=== PATIENT | male | born 1930 | race Caucasian/White ===

== ENCOUNTER 2017-02-01 14:08 | Emergency (ER) | payer MEDICARE, OTHER ==
[~2017-02-01 14:08] MED LIST: ACET-1757 PO; ACID1TAB7 PO; ALBU8.5H3 INH; ASPI-496 PO; BUDE10.2 INH; CEFD300C37 PO; DAPT500V6 IV; DIGO125T PO; DIGO250T PO; FLUT1DIS IH; FLUT1DIS3 INH; HYDR-3138 PO; HYDR12.53 PO; LACT1CAP24 PO; LOSA50TA6 PO; METO50TA82 PO; METR500T PO; NAPR550T3 PO; NYST1000 PO; PRED10TA PO; PRED20TA PO; SIMV20TA3 PO; SOTA160T PO; TAMS-11 PO; TRAM50TA2 PO
[2017-02-01] MEDS ORDERED: OMNIPAQUE 350 MG/ML, 100ML BOTTLE ONE (22:30)
[2017-02-04 09:19] LABS: ASPARTATE AMINO TRANSFERASE 15 U/L (15-37); BLOOD UREA NITROGEN 29 mg/dL (7-18)
[2017-02-05 12:09] LABS: IS PT STATUS REG ER OR PRE ER? YES
== END 2017-02-02 00:03 ==
LOC: ED 14:08
DX: R06.00 Dyspnea, unspecified (principal); E86.0 Dehydration; J44.9 Chronic obstructive pulmonary disease, unspecified; I25.10 Atherosclerotic heart disease of native coronary artery without angina pectoris; M19.90 Unspecified osteoarthritis, unspecified site; Z95.0 Presence of cardiac pacemaker
CPT/HCPCS: 36415; 71010; 71275; 80053; 81001; 84484; 85025; 85379; 87040; 93005; 99285; Q9967

== ENCOUNTER → 2017-03-19 | Outpatient (CLI) | payer MEDICARE, OTHER ==
[~2017-03-19] MED LIST changes: -NAPR550T3 PO; +NAPR550T30 PO
== END | disposition home or self-care (01) ==
LOC: CFH 10:57
PROVIDERS: ATTEND Physician Assistant
DX: J32.0 Chronic maxillary sinusitis (principal); H70.92 Unspecified mastoiditis, left ear; J34.2 Deviated nasal septum
CPT/HCPCS: 70486

== ENCOUNTER → 2017-03-21 | Outpatient (CLI) | payer MEDICARE, OTHER ==
[2017-03-21 12:43] LABS: DIFF TOTAL CELLS COUNTED 100 CELL DIFF
[2017-03-21 12:46] LABS: VERIFY COUNTS? YES
[2017-03-21 12:47] LABS: ANISOCYTOSIS 1+; SMALL PLATELETS 1+
== END | disposition home or self-care (01) ==
LOC: LAB 11:54
PROVIDERS: ATTEND Internal Medicine Infectious Disease
DX: D70.9 Neutropenia, unspecified (principal)
CPT/HCPCS: 36415; 85025

== ENCOUNTER → 2017-05-28 | Outpatient (CLI) | payer MEDICARE, OTHER ==
[~2017-05-28] MED LIST changes: -ALBU8.5H3 INH; +ALBU8.5H8 INH; -HYDR-3138 PO; +HYDR-3237 PO; +NAPR-850 PO; -NAPR550T30 PO
== END | disposition home or self-care (01) ==
LOC: CFH 07:58
PROVIDERS: ATTEND Internal Medicine Hematology & Oncology
DX: R16.1 Splenomegaly, not elsewhere classified (principal); D70.9 Neutropenia, unspecified
CPT/HCPCS: 76700

== ENCOUNTER 2018-07-01 14:29 | Inpatient (IN) | payer MEDICARE, OTHER ==
[~2018-07-01] VITALS: Ht 160 cm; Wt 51.9 kg
[~2018-07-01 14:29] MED LIST changes: -LOSA50TA6 PO; +LOSA50TA7 PO
[2018-07-01] MEDS ORDERED: SODIUM CHLORIDE 0.9% 1,000ML IVBOLUS ONE (16:00)
[2018-07-01] MEDS ORDERED: ALBUTEROL/IPRATROPIUM 2.5MG/0.5MG, 3 ML NPPB ONE (16:00)
[2018-07-01] MEDS ORDERED: SODIUM CHLORIDE FLUSH 10ML SYR IVF ONE (16:00)
[2018-07-01 16:03] LABS: MICROSCOPIC INDICATED
[2018-07-01 16:26] LABS: BASOPHILS # (AUTO) 0.04 x10^3/uL (0-0.1); BASOPHILS % (AUTO) 1 % (0-1); EOSINOPHILS # (AUTO) 0.19 x10^3/uL (0-0.4); EOSINOPHILS % (AUTO) 4 % (1-7); LYMPHOCYTES # (AUTO) 1.14 x10^3/uL (1-3.4); LYMPHOCYTES % (AUTO) 22 % (22-44); MD NO; MEAN CORPUSCULAR HEMOGLOBIN 27.9 pg (27.5-34.5); MEAN CORPUSCULAR HGB CONC 33.3 g/dL (33.2-36.2); MEAN CORPUSCULAR VOLUME 83.7 fL (81-97); MEAN PLATELET VOLUME 6.1 fL (7.4-10.4); MONOCYTES # (AUTO) 0.57 x10^3/uL (0.2-0.8); MONOCYTES % (AUTO) 11 % (2-9); NEUTROPHILS # (AUTO) 3.24 x10^3/uL (1.8-6.8); NEUTROPHILS % (AUTO) 63 % (42-75); PLATELET COUNT 426 x10^3/uL (130-400); RED BLOOD COUNT 5.48 x10^6/uL (4.38-5.82); RED CELL DISTRIBUTION WIDTH 16.6 % (9.4-14.8)
[2018-07-01 16:31] LABS: ALANINE AMINOTRANSFERASE 16 U/L (12-78); ALBUMIN 3.1 g/dL (3.4-5.0); ANION GAP 8 mmol/L (5-15); CALCIUM 8.8 mg/dL (8.5-10.1); CHLORIDE 99 mmol/L (98-107)
[2018-07-01 16:34] LABS: ALKALINE PHOSPHATASE 61 U/L (45-117); BILIRUBIN,TOTAL 0.6 mg/dL (0.2-1.0); CREATININE 1.15 mg/dL (0.7-1.3); TOTAL PROTEIN 8.9 g/dL (6.4-8.2); TROPONIN I < 0.015 ng/mL (0.000-0.045)
[2018-07-01 16:36] LABS: CULTURE INDICATED? NO
[2018-07-01 16:40] LABS: CREATINE KINASE, TOTAL 15 U/L (39-308); FREE T4 (FREE THYROXINE) 2.72 ng/dL (0.76-1.46)
[2018-07-01 17:16] LABS: HCT (SEDRATE) 45.9 % (39.2-51.8)
[2018-07-01] MEDS ORDERED: HYDR12.58 PO (18:17)
[2018-07-01] MEDS ORDERED: NS + 20MEQ KCL 1,000 ML IV SCH (18:38)
[2018-07-01] MEDS ORDERED: DOCUSATE 100 MG CAPSULE PO PRN (19:00)
[2018-07-01] MEDS ORDERED: ONDANSETRON 2MG/ML, 2ML IVPush PRN (19:00)
[2018-07-01] MEDS ORDERED: HYDROcodone/APAP 5/325 TABLET PO PRN (19:00)
[2018-07-01] MEDS ORDERED: ACETAMINOPHEN 325 MG TABLET PO PRN (19:00)
[2018-07-01] MEDS ORDERED: morphine SULFATE 10 MG/ML, 1ML IVPush PRN (19:00)
[2018-07-01] MEDS ORDERED: POLYETHYLENE GLYCOL 17 GM PACKET PO PRN (19:00)
[2018-07-01] MEDS ORDERED: ALBUTEROL/IPRATROPIUM 2.5MG/0.5MG, 3 ML NPPB PRN (19:30)
[2018-07-01 19:53] VITALS: BP 113/66
[2018-07-01] MEDS: ALBUTEROL/IPRATROPIUM 2.5MG/0.5MG, 3 ML NPPB SCH (20:02)
[2018-07-01] MEDS: NYSTATIN 500,000 UNITS/5 ML UDC PO SCH (20:09)
[2018-07-01] MEDS: LACTOBACILLUS CHEW TABLET PO SCH (20:10)
[2018-07-01] MEDS: FAMOTIDINE 20 MG TABLET PO SCH (20:10)
[2018-07-01] MEDS: ENOXAPARIN 40 MG/0.4 ML SQ SCH (20:10)
[2018-07-02 02:16] VITALS: BP 96/54
[2018-07-02] MEDS: LACTOBACILLUS CHEW TABLET PO SCH ×4 (06:56→21:13)
[2018-07-02] MEDS: NYSTATIN 500,000 UNITS/5 ML UDC PO SCH ×4 (06:56→21:13)
[2018-07-02 07:19] VITALS: BP 122/64
[2018-07-02] MEDS: ALBUTEROL/IPRATROPIUM 2.5MG/0.5MG, 3 ML NPPB SCH ×4 (07:39→20:20)
[2018-07-02] MEDS: SENNA/DOCUSATE TABLET PO SCH (09:00)
[2018-07-02] MEDS: ASPIRIN 81 MG TABLET EC PO SCH (10:07)
[2018-07-02] MEDS: FAMOTIDINE 20 MG TABLET PO SCH ×2 (10:07→21:13)
[2018-07-02] MEDS: DOXYCYCLINE 100MG CAP PO SCH ×2 (12:17→21:13)
[2018-07-02] MEDS: methylPREDNISolone SOD SUCC 125 MG/2 ML IVPush SCH ×2 (12:18→18:35)
[2018-07-02] MEDS: CEFTRIAXONE PMX 1GM/50ML 50 ML IV SCH (14:06)
[2018-07-02 14:30] VITALS: BP 116/68
[2018-07-02 19:24] VITALS: BP 113/54
[2018-07-02] MEDS: ENOXAPARIN 40 MG/0.4 ML SQ SCH (21:12)
[2018-07-03] MEDS: methylPREDNISolone SOD SUCC 125 MG/2 ML IVPush SCH ×4 (00:15→18:21)
[2018-07-03 00:48] VITALS: BP 107/57
[2018-07-03 04:36] LABS: BASOPHILS % (AUTO) 0 % (0-1); EOSINOPHILS % (AUTO) 0 % (1-7); LYMPHOCYTES # (AUTO) 0.44 x10^3/uL (1-3.4); LYMPHOCYTES % (AUTO) 10 % (22-44); MD NO; MEAN CORPUSCULAR HEMOGLOBIN 28.3 pg (27.5-34.5); MEAN CORPUSCULAR HGB CONC 34.3 g/dL (33.2-36.2); MEAN CORPUSCULAR VOLUME 82.6 fL (81-97); MEAN PLATELET VOLUME 6.1 fL (7.4-10.4); MONOCYTES # (AUTO) 0.12 x10^3/uL (0.2-0.8); MONOCYTES % (AUTO) 3 % (2-9); NEUTROPHILS # (AUTO) 3.83 x10^3/uL (1.8-6.8); NEUTROPHILS % (AUTO) 87 % (42-75); PLATELET COUNT 342 x10^3/uL (130-400); RED BLOOD COUNT 4.13 x10^6/uL (4.38-5.82); RED CELL DISTRIBUTION WIDTH 16.8 % (9.4-14.8)
[2018-07-03 04:44] LABS: ALANINE AMINOTRANSFERASE 14 U/L (12-78); ALBUMIN 2.5 g/dL (3.4-5.0); ANION GAP 9 mmol/L (5-15); CHLORIDE 107 mmol/L (98-107); CREATININE 1.19 mg/dL (0.7-1.3)
[2018-07-03 04:47] LABS: ALKALINE PHOSPHATASE 45 U/L (45-117); BILIRUBIN,TOTAL 0.3 mg/dL (0.2-1.0); TOTAL PROTEIN 6.9 g/dL (6.4-8.2)
[2018-07-03] MEDS: LACTOBACILLUS CHEW TABLET PO SCH ×4 (06:23→21:31)
[2018-07-03] MEDS: NYSTATIN 500,000 UNITS/5 ML UDC PO SCH ×4 (06:23→21:31)
[2018-07-03] MEDS: LEVOTHYROXINE 25 MCG TABLET PO SCH (06:24)
[2018-07-03 06:33] VITALS: BP 107/56
[2018-07-03] MEDS: ALBUTEROL/IPRATROPIUM 2.5MG/0.5MG, 3 ML NPPB SCH ×4 (07:28→19:06)
[2018-07-03] MEDS: SENNA/DOCUSATE TABLET PO SCH (08:23)
[2018-07-03] MEDS: ASPIRIN 81 MG TABLET EC PO SCH (08:23)
[2018-07-03] MEDS: DOXYCYCLINE 100MG CAP PO SCH ×2 (08:23→21:30)
[2018-07-03] MEDS: FAMOTIDINE 20 MG TABLET PO SCH ×2 (08:23→21:30)
[2018-07-03] MEDS: CEFTRIAXONE PMX 1GM/50ML 50 ML IV SCH (11:51)
[2018-07-03 13:10] VITALS: BP 96/54
[2018-07-03 20:00] VITALS: BP 103/54
[2018-07-03] MEDS: ENOXAPARIN 30 MG/0.3 ML SQ SCH (21:30)
[2018-07-04] MEDS: methylPREDNISolone SOD SUCC 125 MG/2 ML IVPush SCH ×5 (00:48→23:48)
[2018-07-04 01:29] VITALS: BP 103/49
[2018-07-04] MEDS: NYSTATIN 500,000 UNITS/5 ML UDC PO SCH ×4 (05:51→20:54)
[2018-07-04] MEDS: LACTOBACILLUS CHEW TABLET PO SCH ×4 (05:51→20:53)
[2018-07-04] MEDS: LEVOTHYROXINE 25 MCG TABLET PO SCH (05:52)
[2018-07-04] MEDS: ALBUTEROL/IPRATROPIUM 2.5MG/0.5MG, 3 ML NPPB SCH ×4 (07:00→20:55)
[2018-07-04 08:00] VITALS: BP 89/46
[2018-07-04] MEDS: ASPIRIN 81 MG TABLET EC PO SCH (08:39)
[2018-07-04] MEDS: DOXYCYCLINE 100MG CAP PO SCH ×2 (08:39→20:53)
[2018-07-04] MEDS: FAMOTIDINE 20 MG TABLET PO SCH ×2 (08:39→20:53)
[2018-07-04] MEDS: SENNA/DOCUSATE TABLET PO SCH (08:40)
[2018-07-04] MEDS: CEFTRIAXONE PMX 1GM/50ML 50 ML IV SCH (11:39)
[2018-07-04 13:18] VITALS: BP 95/51
[2018-07-04] MEDS: SODIUM CHLORIDE 0.9% 1,000 ML IV SCH ×2 (13:23→23:48)
[2018-07-04 19:06] VITALS: BP 108/58
[2018-07-04] MEDS: ENOXAPARIN 30 MG/0.3 ML SQ SCH (20:54)
[2018-07-05 01:05] VITALS: BP 106/61
[2018-07-05 04:58] LABS: ANION GAP 9 mmol/L (5-15); CALCIUM 7.7 mg/dL (8.5-10.1); CHLORIDE 109 mmol/L (98-107)
[2018-07-05] MEDS: NYSTATIN 500,000 UNITS/5 ML UDC PO SCH ×2 (05:24→12:02)
[2018-07-05] MEDS: LACTOBACILLUS CHEW TABLET PO SCH ×2 (05:24→12:02)
[2018-07-05] MEDS: LEVOTHYROXINE 25 MCG TABLET PO SCH (05:24)
[2018-07-05] MEDS: methylPREDNISolone SOD SUCC 125 MG/2 ML IVPush SCH ×2 (05:24→12:03)
[2018-07-05 05:28] LABS: CREATININE 1.04 mg/dL (0.7-1.3); FOLATE LEVEL 17.6 ng/mL (3.1-17.5)
[2018-07-05 07:42] VITALS: BP 128/76
[2018-07-05] MEDS ORDERED: ERGOCALCIFEROL 50,000 UNIT CAPSULE PO SCH (08:00)
[2018-07-05] MEDS ORDERED: ALBUTEROL/IPRATROPIUM 2.5MG/0.5MG, 3 ML NPPB PRN (08:30)
[2018-07-05] MEDS: SENNA/DOCUSATE TABLET PO SCH (08:50)
[2018-07-05] MEDS: ASPIRIN 81 MG TABLET EC PO SCH (08:50)
[2018-07-05] MEDS: DOXYCYCLINE 100MG CAP PO SCH (08:50)
[2018-07-05] MEDS: FAMOTIDINE 20 MG TABLET PO SCH (08:50)
[2018-07-05] MEDS ORDERED: CEFD300C37 PO (10:48)
[2018-07-05] MEDS ORDERED: ERGO500017 PO (10:48)
[2018-07-05] MEDS ORDERED: IPRA3AMP30 NPPB (10:48)
[2018-07-05] MEDS ORDERED: POLY17PO5 PO (10:48)
[2018-07-05] MEDS ORDERED: PRED10TA PO (10:48)
[2018-07-05] MEDS ORDERED: LEVO25TA2 PO (10:48)
[2018-07-05] MEDS ORDERED: TIOT18CA INH (10:48)
[2018-07-05] MEDS ORDERED: DOXY100C2 PO (10:48)
[2018-07-05] MEDS ORDERED: FAMO20TA7 PO (10:48)
[2018-07-05] MEDS ORDERED: FLUT1DIS3 INH (10:48)
[2018-07-05] MEDS: CEFTRIAXONE PMX 1GM/50ML 50 ML IV SCH (12:03)
[2018-07-05 13:33] VITALS: BP 113/63
[2018-07-05] MEDS ORDERED: ENOXAPARIN 40 MG/0.4 ML SQ SCH (21:00)
== END 2018-07-05 14:40 | disposition home health service (06) | DRG 191 ==
LOC: ED 17:57 → EDIP 17:58 → ED 18:02 → 3NW 18:57
PROVIDERS: ADMIT Hospitalist; ATTEND Family Medicine
DX: J44.1 Chronic obstructive pulmonary disease with (acute) exacerbation (principal); D68.69 Other thrombophilia; J96.10 Chronic respiratory failure, unspecified whether with hypoxia or hypercapnia; I50.30 Unspecified diastolic (congestive) heart failure; E44.1 Mild protein-calorie malnutrition; R62.7 Adult failure to thrive; I95.1 Orthostatic hypotension; Z66 Do not resuscitate; R53.81 Other malaise; E03.9 Hypothyroidism, unspecified; R13.10 Dysphagia, unspecified; K22.8 Other specified diseases of esophagus; E78.5 Hyperlipidemia, unspecified; I11.0 Hypertensive heart disease with heart failure; Z99.81 Dependence on supplemental oxygen; N40.0 Benign prostatic hyperplasia without lower urinary tract symptoms; I48.0 Paroxysmal atrial fibrillation; E55.9 Vitamin D deficiency, unspecified; K44.9 Diaphragmatic hernia without obstruction or gangrene; Z51.5 Encounter for palliative care; M06.9 Rheumatoid arthritis, unspecified; M05.00 Felty's syndrome, unspecified site; I25.10 Atherosclerotic heart disease of native coronary artery without angina pectoris; Z95.0 Presence of cardiac pacemaker; Z91.81 History of falling; Z87.01 Personal history of pneumonia (recurrent); Z87.440 Personal history of urinary (tract) infections; Z68.20 Body mass index [BMI] 20.0-20.9, adult; Z82.49 Family history of ischemic heart disease and other diseases of the circulatory system; Z87.891 Personal history of nicotine dependence; Z95.5 Presence of coronary angioplasty implant and graft
CPT/HCPCS: 36415; 71045; 74220; 80048; 80053; 81001; 82306; 82550; 82607; 82746; 83735; 83880; 84100; 84439; 84443; 84484; 85025; 85651; 87040; 93005; 93306; 94640; 96360; 99285; G0378; J0696; J1650; J3480; J7620; J2930; J7030; J7512